=== PATIENT | female | born 2000 | race American Indian/Alaskan Native ===

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

== ENCOUNTER 2019-06-29 15:07 | Emergency (ER) | payer SELFPAY ==
[2019-06-29 20:05] VITALS: BP 114/85
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
--- NOTE | 2019-06-29 20:14 | Emergency Department Report ---
Chief Complaint: Upper Respiratory Infection Stated Complaint: COLD SYMPTOMS Time Seen by Provider: 06/29/19 20:06 - HPI History of Present Illness: pt is a 18 yo female who presents to the ED with c/o sore throat that began two days ago. she has some discomfort with swallowing. she is able to tolerate PO intake. she states that it feels itchy/dry. she states she has a dry cough. she denies any fever. no sick contacts. no PMHx. no allergies to meds. LNMP: 06/06/19. no recent abx CENTOR criteria is 0, no further testing or antibiotics warranted vitals are normal on exam: non toxic appearing, no acute distress normal TMs and canals moist mucus membranes normal oropharynx, no tonsillar exudate or hypertrophy, uvula is midline, no uvular edema normal nasal turbinates normal breath sounds bilaterally without w/r/r normal heart sounds, no rubs, gallops no signs of tonsillitis, pharyngitis, tonsillar abscess, or siladenitis Patient is presenting with a non-medical emergency at this time Medical screening examination performed and there is no threat to life or limb at this time Patient will be referred to a primary care physician - Exam Vital Signs: Vital Signs 06/29/19 20:02 Temperature 98.3 F Pulse Rate 72 Respiratory 18 Rate Blood Pressure 114/85 O2 Sat by Pulse 100 Oximetry MSE screening note: Focused history and physical exam performed. ED Disposition for MSE Clinical Impression: Viral URI with cough Disposition: Z-07 MED SCREENING EXAM-LEFT Is pt being admited?: No Does the pt Need Aspirin: No Condition: Stable Instructions: Viral Syndrome (ED) Additional Instructions: please increase your fluid intake over the next several days. may take tylenol or ibuprofen for body aches. may use mucinex or robitussin over the counter. follow up with a primary care doctor in the next 2-3 days for reexamination. return to the emergency room for any new or worsening symptoms. Referrals: ESAU KO MD [Staff Physician] - 2-3 Days [facility] [Outside] - 2-3 Days [facility] [Outside] - 2-3 Days Forms: Work/School Release Form(ED) Time of Disposition: 20:12 Print Language: TAMAZIGHT
== END 2019-06-29 20:40 | disposition left against medical advice (07) ==
LOC: ED 15:07
DX: J06.9 Acute upper respiratory infection, unspecified (principal)